=== PATIENT | male | born 1980 | race Caucasian/White ===

== ENCOUNTER 2021-05-14 19:22 | Emergency (ER) | payer MEDICAID ==
[~2021-05-14] VITALS: Ht 185.4 cm; Wt 105.0 kg
[2021-05-14 19:27] VITALS: BP 130/95
--- NOTE | 2021-05-14 19:47 | NUR ---
PT C/O RIGHT 5TH TOE PAIN AFTER INJURY AT [facility] TODAY. PT STATES "I THINK ITS BROKEN".
[2021-05-14] MEDS ORDERED: HYDROcodone/APAP 5/325 TABLET PO ONE (20:00)
[2021-05-14] MEDS ORDERED: HYDROcodone/APAP 5/325 TABLET ONE (20:18)
--- NOTE | 2021-05-14 20:21 | NUR ---
MEDICATED PER MAR.
== END 2021-05-14 21:35 | disposition home or self-care (01) ==
LOC: ED 21:20
DX: S92.534A Nondisplaced fracture of distal phalanx of right lesser toe(s), initial encounter for closed fracture (principal); M79.671 Pain in right foot; I10 Essential (primary) hypertension; X58.XXXA Exposure to other specified factors, initial encounter; Y93.89 Activity, other specified; Y92.828 Other wilderness area as the place of occurrence of the external cause; Y99.8 Other external cause status
CPT/HCPCS: 99283